=== PATIENT | male | born 1970 | race Caucasian/White ===

== ENCOUNTER 2018-08-29 01:40 | Emergency (ER) | payer BC ==
[~2018-08-29] VITALS: Ht 193 cm; Wt 136.0 kg
[~2018-08-29 01:40] MED LIST: ALLOPURINOL100 MG OR; ALLOPURINOL300 MG PO; CEPHALEXIN500 M1 PO; CLARITIN10 MG OR; COLCHICINE PO; COLCHICINE0.6 MG PO; FLEXERIL OR; HYDROCO/APAP1 T10 PO; HYDROCO/APAP1 TA9 PO; INDOCIN25 MG OR; INDOCIN25 MG PO; INDOCIN50 MG/CAP PO; KEFLEX500 M1 PO; LEVOTHYROXIN175 MCG PO; LISINOPRIL5 MG PO; LORTAB 5 OR; LORTAB 5-325 MG1 TAB PO; LORTAB 5/3255 MG PO; LORTAB 7.5 OR; LORTAB 7.5 PO; MEDDOSEPAK PO; MOTRIN800 MG OR; NAPROSYN500 MG OR; PERCOCET 5/325M1 TAB PO; PROBENECID/COLC1 TAB PO; SIMVASTATIN10 MG PO; STERAPRED DS10 MG PO; SYNTHROID175 MCG PO; ULORIC40 MG PO; ULTRAM50 M1 PO; ULTRAM50 MG OR
[2018-08-29 02:17] LABS: HEMATOCRIT 39.1 % (39.0-50.0); HEMOGLOBIN 12.9 g/dl (14.0-18.0); IMMATURE GRANULOCYTES 0.7 % (0.0-5.0); MEAN CELL VOLUME 99.7 fL CALC (80.0-100.0); MEAN CORPUSCULAR HGB 32.9 pG CALC (26.0-32.0); NEUT# 8.11 thou/uL (1.82-7.42); RED BLOOD COUNT 3.92 mill/uL (4.70-6.10); RED CELL DISTRI WIDTH 14.1 % (11.5-15.5)
[2018-08-29 02:18] LABS: URINE BILIRUBIN - DIPSTICK NEGATIVE (NEGATIVE); URINE BLOOD DIPSTICK TRACE-LYSED (NEGATIVE); URINE COLOR YELLOW; URINE GLUCOSE - DIPSTICK NEGATIVE (NEGATIVE); URINE KETONE NEGATIVE (NEGATIVE); URINE LEUK ESTERASE NEGATIVE (NEGATIVE); URINE NITRITE - DIPSTICK NEGATIVE (Negative); URINE PH 6.5 (4.5-8.0); URINE PROTEIN - DIPSTICK 100 mg/dL (NEG-TRACE); URINE SPECIFIC GRAVITY 1.025; URINE UROBILINOGEN - DIPSTICK 0.2 E.U./dL (0.2)
[2018-08-29 02:32] LABS: URINE RBC 0-2 RBC/hpf (0-5); URINE WBC 0-2 WBC/hpf (0-5)
[2018-08-29 02:32] LABS: ALBUMIN 4.1 g/dL (3.2-5.0); BILIRUBIN, TOTAL 0.4 mg/dL (0.0-1.4); CREATININE 2.3 mg/dL (0.7-1.3); POTASSIUM 4.8 mmol/l (3.5-5.1); TOTAL PROTEIN 8.5 g/dL (6.3-8.2)
[2018-08-29] MEDS ORDERED: FLEXERIL PO (03:48)
[2018-08-29 03:50] VITALS: BP 141/90
== END 2018-08-29 03:57 | disposition home or self-care (01) | DRG 552 ==
LOC: ED 01:40
PROVIDERS: Emergency Medicine
DX: M54.89 Other dorsalgia (principal); I10 Essential (primary) hypertension

== ENCOUNTER → 2018-10-09 | Outpatient (REF) ==
[~2018-10-09] MED LIST changes: +FLEXERIL PO
== END | disposition home or self-care (01) | DRG 684 ==
LOC: LAB 07:26
DX: N18.4 Chronic kidney disease, stage 4 (severe) (principal)

== ENCOUNTER 2018-12-16 06:37 | Emergency (ER) | payer BC ==
[~2018-12-16] VITALS: Ht 193 cm; Wt 100.0 kg
[2018-12-16] MEDS ORDERED: PREDNISONE5 MG PO (06:47)
[2018-12-16] MEDS ORDERED: ALLOPURINOL100 MG PO (06:47)
[2018-12-16] MEDS ORDERED: SIMVASTATIN5 MG PO (06:59)
[2018-12-16] MEDS ORDERED: ASPIRIN EC LOW81 MG PO (07:00)
[2018-12-16 07:15] LABS: HEMOGLOBIN 14.5 g/dl (14.0-18.0); IMMATURE GRANULOCYTES 0.6 % (0.0-5.0); MEAN CORPUSCULAR HGB 29.8 pG CALC (26.0-32.0); MEAN CORPUSCULAR HGB CONC 32.2 g/L CALC (32.0-36.0); NEUT# 16.23 thou/uL (1.82-7.42); RED BLOOD COUNT 4.87 mill/uL (4.70-6.10); RED CELL DISTRI WIDTH 14.7 % (11.5-15.5)
[2018-12-16 07:21] LABS: BILIRUBIN, TOTAL 0.5 mg/dL (0.0-1.4); CREATININE 1.8 mg/dL (0.7-1.3); POTASSIUM 4.9 mmol/l (3.5-5.1); TOTAL PROTEIN 7.9 g/dL (6.3-8.2)
[2018-12-16 07:32] LABS: HEMATOCRIT 45.1 % (39.0-50.0); MEAN CELL VOLUME 92.6 fL CALC (80.0-100.0)
[2018-12-16 08:22] LABS: C-REACTIVE PROTEIN 4.6 mg/dL (0-0.9)
[2018-12-16] MEDS ORDERED: COLCHICINE0.6 M2 PO (08:48)
[2018-12-16] MEDS ORDERED: PERCOCET 10/31 COMBO PO (08:49)
[2018-12-16 08:56] VITALS: BP 126/81
== END 2018-12-16 09:24 | disposition home or self-care (01) | DRG 554 ==
LOC: ED 06:37
PROVIDERS: Emergency Medicine
DX: M10.061 Idiopathic gout, right knee (principal); I10 Essential (primary) hypertension

== ENCOUNTER 2019-05-29 05:11 | Observation (INO) | payer BC ==
[~2019-05-29] VITALS: Ht 193 cm; Wt 129.4 kg
[~2019-05-29 05:11] MED LIST changes: +ALLOPURINOL100 MG PO; +ASPIRIN EC LOW81 MG PO; +COLCHICINE0.6 M2 PO; +PERCOCET 10/31 COMBO PO; +PREDNISONE5 MG PO; +SIMVASTATIN5 MG PO
[2019-05-29 06:31] LABS: HEMATOCRIT 42.6 % (39.0-50.0); HEMOGLOBIN 13.6 g/dl (14.0-18.0); IMMATURE GRANULOCYTES 0.7 % (0.0-5.0); MEAN CELL VOLUME 96.4 fL CALC (80.0-100.0); MEAN CORPUSCULAR HGB 30.8 pG CALC (26.0-32.0); MEAN CORPUSCULAR HGB CONC 31.9 g/L CALC (32.0-36.0); RED BLOOD COUNT 4.42 mill/uL (4.70-6.10); RED CELL DISTRI WIDTH 15.2 % (11.5-15.5)
[2019-05-29 06:33] LABS: URINE BILIRUBIN - DIPSTICK SMALL (NEGATIVE); URINE BLOOD DIPSTICK TRACE-LYSED (NEGATIVE); URINE COLOR YELLOW; URINE GLUCOSE - DIPSTICK NEGATIVE (NEGATIVE); URINE KETONE NEGATIVE (NEGATIVE); URINE LEUK ESTERASE NEGATIVE (NEGATIVE); URINE NITRITE - DIPSTICK NEGATIVE (Negative); URINE PH 5.5 (4.5-8.0); URINE PROTEIN - DIPSTICK >=300 mg/dL (NEG-TRACE); URINE SPECIFIC GRAVITY >=1.030; URINE UROBILINOGEN - DIPSTICK 0.2 E.U./dL (0.2)
[2019-05-29 06:36] LABS: URINE EPITHELIAL CELLS FEW EPI/hpf (0-FEW); URINE MUCUS MODERATE hpf (NONE-FEW); URINE RBC 0-2 RBC/hpf (0-5)
[2019-05-29 06:51] LABS: ALBUMIN 4.7 g/dL (3.2-5.0); BILIRUBIN, TOTAL 0.6 mg/dL (0.0-1.4); CREATININE 2.7 mg/dL (0.7-1.3); MAGNESIUM 1.9 mg/dL (1.6-2.3); POTASSIUM 4.2 mmol/l (3.5-5.1); TOTAL PROTEIN 8.7 g/dL (6.3-8.2)
[2019-05-29] MEDS ORDERED: HYDROCO/APAP1 T11 PO (11:29)
[2019-05-29 14:23] VITALS: BP 117/78
[2019-05-29 19:56] VITALS: BP 114/74
[2019-05-29 23:30] VITALS: BP 124/68
[2019-05-30 04:10] VITALS: BP 128/65
[2019-05-30 05:15] LABS: HEMATOCRIT 40.7 % (39.0-50.0); HEMOGLOBIN 12.6 g/dl (14.0-18.0); IMMATURE GRANULOCYTES 0.6 % (0.0-5.0); MEAN CELL VOLUME 98.1 fL CALC (80.0-100.0); MEAN CORPUSCULAR HGB 30.4 pG CALC (26.0-32.0); NEUT# 9.67 thou/uL (1.82-7.42); RED BLOOD COUNT 4.15 mill/uL (4.70-6.10); RED CELL DISTRI WIDTH 15.3 % (11.5-15.5)
[2019-05-30 05:30] LABS: CREATININE 2.1 mg/dL (0.7-1.3); POTASSIUM 4.8 mmol/l (3.5-5.1)
[2019-05-30 05:32] LABS: CHOLESTEROL HDL RATIO 4.8 (<4.4 (CALC))
[2019-05-30 08:15] VITALS: BP 133/88
[2019-05-30 11:54] VITALS: BP 118/59
[2019-05-30 16:00] VITALS: BP 151/82
[2019-05-30 18:55] VITALS: BP 140/56
[2019-05-31] VITALS (8 sets, daily range): BP systolic 127–164; BP diastolic 72–92
[2019-05-31 05:38] LABS: CREATININE 2.1 mg/dL (0.7-1.3); POTASSIUM 4.6 mmol/l (3.5-5.1)
[2019-05-31 05:42] LABS: ALBUMIN 3.7 g/dL (3.2-5.0)
[2019-05-31 08:38] LABS: HEMATOCRIT 39.5 % (39.0-50.0); HEMOGLOBIN 12.3 g/dl (14.0-18.0); IMMATURE GRANULOCYTES 0.6 % (0.0-5.0); MEAN CELL VOLUME 99.7 fL CALC (80.0-100.0); MEAN CORPUSCULAR HGB 31.1 pG CALC (26.0-32.0); MEAN CORPUSCULAR HGB CONC 31.1 g/L CALC (32.0-36.0); NEUT# 14.25 thou/uL (1.82-7.42); RED BLOOD COUNT 3.96 mill/uL (4.70-6.10)
[2019-06-01 04:25] VITALS: BP 119/68
[2019-06-01 05:43] LABS: HEMATOCRIT 34.2 % (39.0-50.0); HEMOGLOBIN 10.8 g/dl (14.0-18.0); IMMATURE GRANULOCYTES 1.1 % (0.0-5.0); MEAN CELL VOLUME 97.2 fL CALC (80.0-100.0); MEAN CORPUSCULAR HGB 30.7 pG CALC (26.0-32.0); MEAN CORPUSCULAR HGB CONC 31.6 g/L CALC (32.0-36.0); NEUT# 18.51 thou/uL (1.82-7.42); RED BLOOD COUNT 3.52 mill/uL (4.70-6.10); RED CELL DISTRI WIDTH 14.6 % (11.5-15.5)
[2019-06-01 06:01] LABS: ALBUMIN 3.2 g/dL (3.2-5.0); CREATININE 2.1 mg/dL (0.7-1.3); POTASSIUM 4.9 mmol/l (3.5-5.1)
[2019-06-01 06:17] LABS: CREATININE 2.1 mg/dL (0.7-1.3)
[2019-06-01 07:15] VITALS: BP 121/59
[2019-06-01 10:58] VITALS: BP 150/88
[2019-06-01] MEDS ORDERED: ZYLOPRIM100 MG PO (11:55)
[2019-06-01] MEDS ORDERED: FERROUS SULFAT325 MG PO (11:55)
[2019-06-01] MEDS ORDERED: TAMSULOSIN HCL0.4 MG PO (11:55)
[2019-06-01] MEDS ORDERED: PREDNISONE5 MG PO (11:55)
[2019-06-01] MEDS ORDERED: HYDROCO/APAP1 T11 PO (11:55)
[2019-06-01] MEDS ORDERED: DOXYCYCL HYC100 MG PO (11:55)
[2019-06-01] MEDS ORDERED: TESTOST CYP200 MG/ML IM (12:06)
[2019-06-01] MEDS ORDERED: MITIGARE0.6 MG PO (12:06)
== END 2019-06-01 12:26 | disposition home or self-care (01) | DRG 683 ==
LOC: ED 05:11 → ED-I 12:57 → ED 13:05 → MS2 13:06
PROVIDERS: Family Medicine; Internal Medicine Nephrology; Nurse Practitioner Family; ADMIT Internal Medicine; ATTEND Internal Medicine
DX: N17.9 Acute kidney failure, unspecified (principal); E87.2 Acidosis; L03.115 Cellulitis of right lower limb; M10.09 Idiopathic gout, multiple sites; E86.0 Dehydration; K52.9 Noninfective gastroenteritis and colitis, unspecified; I12.9 Hypertensive chronic kidney disease with stage 1 through stage 4 chronic kidney disease, or unspecified chronic kidney disease; N18.3 Chronic kidney disease, stage 3 (moderate); D63.1 Anemia in chronic kidney disease; F32.9 Major depressive disorder, single episode, unspecified; T39.395A Adverse effect of other nonsteroidal anti-inflammatory drugs [NSAID], initial encounter; T50.4X6A Underdosing of drugs affecting uric acid metabolism, initial encounter; R80.9 Proteinuria, unspecified; G47.33 Obstructive sleep apnea (adult) (pediatric); E78.5 Hyperlipidemia, unspecified; E03.9 Hypothyroidism, unspecified; Z79.52 Long term (current) use of systemic steroids; Z91.128 Patient's intentional underdosing of medication regimen for other reason
CPT/HCPCS: G0378

== ENCOUNTER 2019-06-28 18:11 | Emergency (ER) | payer BC ==
[~2019-06-28] VITALS: Ht 193 cm; Wt 130.0 kg
[~2019-06-28 18:11] MED LIST changes: +DOXYCYCL HYC100 MG PO; +FERROUS SULFAT325 MG PO; +HYDROCO/APAP1 T11 PO; +MITIGARE0.6 MG PO; +TAMSULOSIN HCL0.4 MG PO; +TESTOST CYP200 MG/ML IM; +ZYLOPRIM100 MG PO
[2019-06-28] MEDS ORDERED: PERCOCET 5/325M1 TAB PO (19:13)
[2019-06-28 20:24] VITALS: BP 138/77
== END 2019-06-28 20:24 | disposition home or self-care (01) | DRG 556 ==
LOC: ED 18:11
DX: M25.511 Pain in right shoulder (principal)

== ENCOUNTER 2019-09-13 | Emergency (ER) | payer OTHER, BC ==
[2019-09-13 09:27] LABS: HEMATOCRIT 39.4 % (39.0-50.0); HEMOGLOBIN 12.2 g/dl (14.0-18.0); IMMATURE GRANULOCYTES 0.5 % (0.0-5.0); MEAN CORPUSCULAR HGB 27.7 pG CALC (26.0-32.0); NEUT# 8.75 thou/uL (1.82-7.42); RED BLOOD COUNT 4.4 mill/uL (4.70-6.10); RED CELL DISTRI WIDTH 16.4 % (11.5-15.5)
[2019-09-13 09:31] LABS: MEAN CELL VOLUME 89.5 fL CALC (80.0-100.0)
[2019-09-13 09:39] LABS: ALKALINE PHOSPHATASE 92 u/l (38-126); ANION GAP 15 (6-22 (CALC)); BUN 28 mg/dL (9-20); BUN/CREATININE RATIO 11 (12-20 (CALC)); CARBON DIOXIDE 22 mmol/l (22-30); CHLORIDE 108 mmol/l (95-108); CREATININE 2.5 mg/dL (0.7-1.3); GFR 28 ML/MIN (>=60 (CALC)); GFR FOR AFR.AMER. 34 ML/MIN (>=60 (CALC)); LIPASE 349 u/l (23-300); POTASSIUM 4.3 mmol/l (3.5-5.1); SGOT/AST 21 u/l (17-59); SODIUM 140 mmol/l (137-146); TOTAL PROTEIN 8.4 g/dL (6.3-8.2)
[2019-09-13 09:44] LABS: BILIRUBIN, TOTAL 0.3 mg/dL (0.0-1.4)
[2019-09-13] MEDS ORDERED: FLEXERIL5 M1 PO (10:57)
== END 2019-09-13 11:09 | disposition home or self-care (01) | DRG 552 ==
PROVIDERS: Family Medicine
DX: M54.2 Cervicalgia (principal); M54.5 Low back pain; M54.6 Pain in thoracic spine; M25.562 Pain in left knee; I10 Essential (primary) hypertension; E03.9 Hypothyroidism, unspecified; F17.220 Nicotine dependence, chewing tobacco, uncomplicated; V53.5XXA Driver of pick-up truck or van injured in collision with car, pick-up truck or van in traffic accident, initial encounter

== ENCOUNTER 2019-11-11 | Emergency (ER) | payer BC ==
[~2019-11-11] MED LIST changes: +FLEXERIL5 M1 PO
[2019-11-11] MEDS ORDERED: PREDNISONE50 MG PO (03:58)
[2019-11-11] MEDS ORDERED: HYDROXYZ HCL25 MG PO (03:58)
== END 2019-11-11 04:40 | disposition home or self-care (01) | DRG 607 ==
DX: L23.81 Allergic contact dermatitis due to animal (cat) (dog) dander (principal); I10 Essential (primary) hypertension; E03.9 Hypothyroidism, unspecified; F17.200 Nicotine dependence, unspecified, uncomplicated

== ENCOUNTER 2020-07-01 12:42 | Inpatient (IN) | payer OTHER ==
[~2020-07-01] VITALS: Ht 193 cm; Wt 131.1 kg
[~2020-07-01 12:42] MED LIST changes: +HYDROXYZ HCL25 MG PO; +PREDNISONE50 MG PO
--- NOTE | 2020-07-01 13:27 | NUR ---
TO RM 6 FOR TRIAGE, IN WHEELCHAIR WITH RELUCTANCE, DENIES CHEST PAIN, REPORTS FLU SX
[2020-07-01] MEDS ORDERED: TAMSULOSIN0.4 MG PO (14:27)
[2020-07-01 14:35] LABS: HEMATOCRIT 43.3 % (39.0-50.0); HEMOGLOBIN 13.5 g/dl (14.0-18.0); IMMATURE GRANULOCYTES 0.7 % (0.0-5.0); MEAN CELL VOLUME 90.4 fL CALC (80.0-100.0); MEAN CORPUSCULAR HGB 28.2 pG CALC (26.0-32.0); MEAN CORPUSCULAR HGB CONC 31.2 g/dL CAL (32.0-36.0); NEUT# 5.63 thou/uL (1.82-7.42); RED BLOOD COUNT 4.79 mill/uL (4.70-6.10); RED CELL DISTRI WIDTH 15.3 % (11.5-15.5)
[2020-07-01 15:04] LABS: PROTHROMBIN TIME 10.2 SECONDS (9.0-12.5)
[2020-07-01 15:05] LABS: ALBUMIN 3.5 g/dL (3.2-5.0); ALKALINE PHOSPHATASE 96 u/l (38-126); BILIRUBIN, TOTAL 0.4 mg/dL (0.0-1.4); BUN 34 mg/dL (9-20); BUN/CREATININE RATIO 13 (12-20 (CALC)); C-REACTIVE PROTEIN 5.4 mg/dL (0-0.9); CHLORIDE 105 mmol/l (95-108); CREATININE 2.6 mg/dL (0.7-1.3); GFR 26 ML/MIN (>=60 (CALC)); GFR FOR AFR.AMER. 32 ML/MIN (>=60 (CALC)); LIPASE 492 u/l (23-300); POTASSIUM 4.5 mmol/l (3.5-5.1); SODIUM 139 mmol/l (137-146); TOTAL PROTEIN 7.3 g/dL (6.3-8.2)
[2020-07-01 15:13] LABS: ANION GAP 10 (6-22 (CALC)); CARBON DIOXIDE 29 mmol/l (22-30); SGOT/AST 67 u/l (17-59)
[2020-07-01] MEDS ORDERED: ALLOPURINOL100 MG PO (16:47)
[2020-07-01] MEDS ORDERED: COLCHICINE0.6 M2 PO (16:48)
[2020-07-01] MEDS ORDERED: HYDROCODONE BIT1 TA9 PO (16:48)
[2020-07-01] MEDS ORDERED: TESTOST CYP200 MG/ML IM (16:49)
[2020-07-01] MEDS ORDERED: PREDNISONE5 MG PO (16:49)
[2020-07-01] MEDS ORDERED: LEVOTHYROXIN200 MCG PO (16:50)
--- NOTE | 2020-07-01 18:28 | NUR ---
REPORT REC FROM WISAM CEDENO
--- NOTE | 2020-07-01 18:47 | NUR ---
REPORT CALLED PT TRANSPORTED AND STABLE IN ROOM, OXYGEN APPLIED Transfer Information Transferred To: [facility] Report Given to: GOYO CEDENO Transported by: [facility] Air Other Transported with: X Nurse Transporter X Patent IV X O2 Utility Maintenance Worker
[2020-07-01 20:14] VITALS: BP 150/91
--- NOTE | 2020-07-01 20:14 | NUR ---
PT ARRIVED TO MED SURG UNIT VIA STRETCHER ACCOMPANIED BY ED NURSE. PT APPEARS TO BE IN STABLE CONDITION AT THIS TIME. PT ORIENTED TO ROOM, CALL SYSTEM, LIGHTS, BED AND TV. ORIENTED TO NEG PRESSURE ROOM ALSO.
--- NOTE | 2020-07-01 20:25 | NUR ---
ASSESSMENT COMPLETED. PT DENIES N/V, REPORTS LOW APPETITE, DIAHRREA YESTERDAY. DENIES DIZZINESS, SOB, CP AT THIS TIME. PT IS ON 6LNC OXYGEN WITH SAT LEVELS STABLE @93% WILL CONTINUE TO MONITOR.
--- NOTE | 2020-07-01 22:55 | NUR ---
PT MEDICATED ORDERS PROVIDE. IVF ADMINISTERED AT THIS TIME ALSO TO 20 IN RFA/SITE APPEARS HEALTHY. PT ASKING FOR LOSENGES OR COUGH SUPPRESENT, WILL NOTIFY PHYSICIAN TREASURY MANAGER FOR REQUEST. PT COUGHING DRY HACKING COUGH WHILE I'M IN THE ROOM. PT REPORTS SORE ABD AND CHEST MUSCLES FROM COUGHING. DENIES ANY OTHER COMFORT MEASURES AT THIS TIME.
--- NOTE | 2020-07-02 | NUR ---
PT MEDICATED W/LOSENGE FOR COUGH/SORE THROAT
[2020-07-02 00:30] VITALS: BP 147/87
--- NOTE | 2020-07-02 02:18 | NUR ---
Pt ambulated to restroom and back to sitting on the side of the bed. Pt was having a coughing spell as I entered the room and had just placed oxygen back on. 02sat 85%on RA, 90% on 6L. Pt asked for assistance with cpap placement at this time, respiratory called for assistance, in with pt at this time. Respiratory reportedly keeping pt on cpap with 6L oxygen at this time.
[2020-07-02 04:00] VITALS: BP 167/93
--- NOTE | 2020-07-02 05:35 | NUR ---
PT MEDICATED ORDERS PROVIDE. HE IS SITTING ON THE SIDE OF THE BED, C/O COUGH. PT PROVIDED LOSENGE FOR COUGH. PT DENIES ANY OTHER NEEDS AT THIS TIME AND HAS BEEN INSTRUCTED TO CALL FOR ANY OTHER NEEDS. CALL LIGHT W/IN REACH.
[2020-07-02 07:58] VITALS: BP 131/92
--- NOTE | 2020-07-02 07:58 | NUR ---
PT SITTING IN BED. A&O X3. NO DISTRESS NOTED. O2 VIA NC IN PLACE @6L. HOME CPAP MACHINE AT BEDSIDE. PT STATES HE WAS TESTED FOR COVID LAST TUESDAY BUT DID NOT OBTAIN HIS RESULTS YET. REPORTS NURSE FIRST ASSIST COUGH FOR A WEEK. SOB WITH EXCERTION. NO OTHER NEEDS AT THIS TIME. CALL LIGHT IN REACH. CONTINUE TO MONITOR.
[2020-07-02 08:06] LABS: HEMATOCRIT 43.1 % (39.0-50.0); HEMOGLOBIN 13.3 g/dl (14.0-18.0); IMMATURE GRANULOCYTES 0.7 % (0.0-5.0); MEAN CELL VOLUME 90.7 fL CALC (80.0-100.0); MEAN CORPUSCULAR HGB CONC 30.9 g/dL CAL (32.0-36.0); NEUT# 6.48 thou/uL (1.82-7.42); RED BLOOD COUNT 4.75 mill/uL (4.70-6.10)
[2020-07-02 08:36] LABS: ALBUMIN 3.5 g/dL (3.2-5.0); BILIRUBIN, TOTAL 0.4 mg/dL (0.0-1.4); C-REACTIVE PROTEIN 4.5 mg/dL (0-0.9); CREATININE 2.3 mg/dL (0.7-1.3); POTASSIUM 5.1 mmol/l (3.5-5.1); TOTAL PROTEIN 7.5 g/dL (6.3-8.2)
--- NOTE | 2020-07-02 08:48 | NUR ---
DR NEWBERRY AND Sera DOMINIQUE APRN AT BEDSIDE DISCUSSING POC
--- NOTE | 2020-07-02 11:05 | NUR ---
PT SITTING IN BED. NO NEEDS AT THIS TIME. CALL LIGHT IN REACH. CONTINUE TO MONITOR.
[2020-07-02 11:38] VITALS: BP 156/91
[2020-07-02 15:00] VITALS: BP 153/90
--- NOTE | 2020-07-02 16:00 | NUR ---
PT SITTING ON THE SIDE OF THE BED. NO DISTRESS NOTED. CALL LIGHT IN RECAH. CONTINUE TO MONITOR.
--- NOTE | 2020-07-02 16:38 | NUR ---
PT TO BE CHANGED TO HIGH FLOW O2, MALCOM CARCAMO AND HI RT NOTIFIED.
--- NOTE | 2020-07-02 16:50 | NUR ---
PT PLACED ON 8L HIGH FLOW O2 BY HI CISNEROS. PT SUSTAINING 92%
--- NOTE | 2020-07-02 16:52 | NUR ---
PLACED ON 8L HFNC. O2 SAT NOW 92%
[2020-07-02 19:27] VITALS: BP 155/89
--- NOTE | 2020-07-02 20:03 | NUR ---
PHYSICAL ASSESMENT COMPLETE. PT CURRENTLY DENIES PAIN BUT STATE HE IS VERY ANXIOUS. WILL PROVIDE PRN AXIETY MEDICATION. ROBITUSSIN PROVIDED FOR ACUTE COUGH. SCHEDULED MEDICATIONS AND PRN MEDICATION ADMINISTERED, SEE E-MAR. PT DENIES ANY NEEDS AT THIS TIME. PLAN OF CARE REVIEWED, PT DENIES QUESTIONS, VERBALIZES UNDERSTANDING. ITEMS WITHIN REACH, BED LOCKED IN LOW POSITION W/ BEDRAILS UP X2. CALL SANDERSON WITHIN REACH, AGREES TO CALL PRN.
--- NOTE | 2020-07-03 00:03 | NUR ---
PT LAYING IN BED WITH EYES CLOSED, APPEARS TO BE SLEEPING, APPEARS COMFORTABLE AND IN NO DISTRESS. RESPIRATIONS REGULAR AND UNLABORED. ITEMS REMAIN WITHIN REACH, CALL SANDERSON REMAINS WITHIN REACH. BED REMAINS LOCKED AND IN LOW POSITION WITH BEDRAILS UP X2. WILL CONTINUE TO MONITOR.
[2020-07-03 00:05] VITALS: BP 137/86
--- NOTE | 2020-07-03 03:58 | NUR ---
PT RESTING IN BED, NO SIGNS OF DISTRESS NOTED, RESP EVEN AND UNLABORED ON 8 LITERS OF HIGH FLOW O2. PT VOICES NO NEEDS OR COMPLAINTS AT THIS TIME. CALL LIGHT IN REACH, CONTINUE TO MONITOR.
[2020-07-03 04:00] VITALS: BP 153/86
[2020-07-03 06:09] LABS: HEMATOCRIT 45.9 % (39.0-50.0); HEMOGLOBIN 13.8 g/dl (14.0-18.0); MEAN CELL VOLUME 91.8 fL CALC (80.0-100.0); MEAN CORPUSCULAR HGB 27.6 pG CALC (26.0-32.0); MEAN CORPUSCULAR HGB CONC 30.1 g/dL CAL (32.0-36.0); RED CELL DISTRI WIDTH 15.1 % (11.5-15.5)
[2020-07-03 06:11] LABS: ALBUMIN 3.3 g/dL (3.2-5.0); BILIRUBIN, TOTAL 0.3 mg/dL (0.0-1.4); CREATININE 2.2 mg/dL (0.7-1.3)
[2020-07-03 06:15] LABS: POTASSIUM 5.7 mmol/l (3.5-5.1)
[2020-07-03 07:15] VITALS: BP 145/91
--- NOTE | 2020-07-03 07:48 | NUR ---
RECIEVED REPORT FROM WILIAN NUNEZ. PT RESTING IN SEMI FOWLERS POSITION UPON ENTERING ROOM. INRODUCED SELF TO PT AND DISCUSSED POC. PT IS A/O X3. ASSESSMENT AND VITALS COMPLETED. RESPIRATIONS ARE EVEN AND UNLABORED ON 8L HIGH FLOW. PT OXYGEN SAT 93-94% . PT COMPLAINS OF SOB ON EXCERTION. HEART RHYTHM NORMAL WITH TELE IN PLACE. BOWEL SOUNDS ARE ACTIVE IN ALL QUADRANTS, LAST REPORTED BM 07/02/20. RADIAL AND PEDAL PULSES ARE STRONG WITH NORMAL CAPILLARY REFILL. #20G IN RAC RUNNING WITH IVF PER ODER, SITE APPEARS HEALTHY AND PATENT. PT DENIES OF ANY PAIN AT THIS TIME.PT DENIES COUGH. ALL SAFETY PRECAUTIONS ARE IN PLACE WITH CALL LIGHT IN REACH.ISOLATION PRECAUTIONS IN PLACE. WILL CONTINUE TO MONITOR
--- NOTE | 2020-07-03 09:00 | NUR ---
DR NEWBERRY AND MALCOM, ANRP AT BEDSIDE DISCUSSING POC WITH PT
[2020-07-03 11:42] VITALS: BP 145/82
--- NOTE | 2020-07-03 12:44 | NUR ---
PT SITTING ON SIDE OF BED EATING LUNCH. RESPIRATIONS ARE EVEN AND UNLABORED ON 8L HIGH FLOW. PT DENIES ANY PAIN OR NEEDS AT THIS TIME. ALL SAFTEY PRECAUTIONS ARE IN PLACE WIHT CALL LIGHT IN REACH. EILL CONTINUE TO MONITOR
[2020-07-03 15:25] VITALS: BP 154/88
--- NOTE | 2020-07-03 15:38 | NUR ---
PT SITTING ON SIDE ON BED. RESPIRATIONS EVEN AND UNLABORED ON 8L HIGH FLOW NC. IV ANTIBIOTICS INFUSING WITH EASE. SITE APPEARS HEALTHY AND PATENT. PT DENIES ANY NEEDS AT THIS TIME. ALL SAFETY PRECAUTIONS ARE IN PLACE WITH CALL LIGHT IN REACH. ISOLATION PRECAUTIONS IN PLACE. WILL CONTINUE TO MONITOR
[2020-07-03 19:45] VITALS: BP 155/51
--- NOTE | 2020-07-03 20:03 | NUR ---
PHYSICAL ASSESMENT COMPLETE. PT CURRENTLY DENIES PAIN OR DISCOMFORT. SCHEDULED MEDICATIONS AND PRN MEDICATION ADMINISTERED, SEE E-MAR. PT DENIES ANY NEEDS AT THIS TIME. PLAN OF CARE REVIEWED, PT DENIES QUESTIONS, VERBALIZES UNDERSTANDING. ITEMS WITHIN REACH, BED LOCKED IN LOW POSITION W/ BEDRAILS UP X2. CALL SANDERSON WITHIN REACH, AGREES TO CALL PRN.
--- NOTE | 2020-07-04 00:03 | NUR ---
PT LAYING IN BED WITH EYES CLOSED, APPEARS TO BE SLEEPING, APPEARS COMFORTABLE AND IN NO DISTRESS. RESPIRATIONS REGULAR AND UNLABORED ON 8 LITERS OF HIGH FLOW 02. ITEMS REMAIN WITHIN REACH, CALL SANDERSON REMAINS WITHIN REACH. BED REMAINS LOCKED AND IN LOW POSITION WITH BEDRAILS UP X2. WILL CONTINUE TO MONITOR.
[2020-07-04 00:25] VITALS: BP 154/88
--- NOTE | 2020-07-04 04:09 | NUR ---
PT RESTING IN BED, NO SIGNS OF DISTRESS NOTED, RESP EVEN AND UNLABORED. PT VOICES NO NEEDS OR COMPLAINTS AT THIS TIME. CALL LIGHT IN REACH,CONTINUE TO MONITOR.
[2020-07-04 05:00] VITALS: BP 130/73
[2020-07-04 05:43] LABS: HEMOGLOBIN 13.6 g/dl (14.0-18.0); IMMATURE GRANULOCYTES 1.4 % (0.0-5.0); MEAN CELL VOLUME 91.1 fL CALC (80.0-100.0); MEAN CORPUSCULAR HGB 28.2 pG CALC (26.0-32.0); MEAN CORPUSCULAR HGB CONC 30.9 g/dL CAL (32.0-36.0); NEUT# 7.58 thou/uL (1.82-7.42); RED BLOOD COUNT 4.83 mill/uL (4.70-6.10)
[2020-07-04 05:58] LABS: ALBUMIN 3.2 g/dL (3.2-5.0); BILIRUBIN, TOTAL 0.3 mg/dL (0.0-1.4); C-REACTIVE PROTEIN 1.4 mg/dL (0-0.9); CREATININE 2.2 mg/dL (0.7-1.3); TOTAL PROTEIN 6.9 g/dL (6.3-8.2)
[2020-07-04 06:01] LABS: POTASSIUM 5.3 mmol/l (3.5-5.1)
[2020-07-04 08:02] VITALS: BP 124/79
--- NOTE | 2020-07-04 08:09 | NUR ---
REPORT RECEIVED FROM WILIAN GARCIA. PT SITTING UP IN BED; ALERT AND ORIENTED. ON AIRBORNE/ISOLATION PRECAUTIONS FOR POSITIVE COVID. DENIES PAIN. RESPIRATIONS EVEN AND UNLABORED ON 8L HUMIDIFIED OXYGEN VIA HIGH FLOW NASAL CANNULA; PT DOES C/O MILD SOB. SPO2 AT THIS TIME IS 85%; WITH ENCOURAGED DEEP BREATHING SPO2 INCREASED TO 87%; OXYGEN TITRATED UP TO 9L. AT 9L SPO2 INCREASES TO 92%; WILL CONTINUE TO MONITOR. PT ENCOURAGED TO TCDB. PT REPORTS SMALL LOOSE GREEN/BROWN BOWEL MOVEMENT THIS MORNING. PLAN OF CARE REVIEWED. PT ENCOURAGED TO VERBALIZE CONCERNS. SAFETY MEASURES IN PLACE. CALL LIGHT WITHIN REACH.
[2020-07-04 10:30] VITALS: BP 136/84
--- NOTE | 2020-07-04 11:23 | NUR ---
INCENTIVE SPIROMETER PROIVDED AND EDUCATED ON; RETURN DEMONSTRATION FROM PT. INSPIRATORY VOLUME OF 1500.
--- NOTE | 2020-07-04 14:43 | NUR ---
REMDESIVIR INFUSING AT THIS TIME; IV SITE APPEARS HEALTHY AND FLUSHES.
[2020-07-04 15:35] VITALS: BP 131/80
--- NOTE | 2020-07-04 16:12 | NUR ---
NO REQUEST OR CONCERNS AT THIS TIME; SPO2 REMAINS ABOVE 90% ON 9L OF OXYGEN. PT INDEPENDENT IN ROOM WITH OXYGEN ON. ZITHROMAX INFUSING AT THIS TIME. CALL LIGHT WITHIN REACH.
[2020-07-04 19:30] VITALS: BP 136/83
--- NOTE | 2020-07-04 22:58 | NUR ---
PHYSICAL ASSESMENT COMPLETE. PT CURRENTLY DENIES PAIN OR DISCOMFORT. SCHEDULED MEDICATIONS AND PRN MEDICATION ADMINISTERED, SEE E-MAR. PT ON 9 LITERS OF HIGH FLOW O2 STATING AT 92%. PT DENIES ANY NEEDS AT THIS TIME. PLAN OF CARE REVIEWED, PT DENIES QUESTIONS, VERBALIZES UNDERSTANDING. ITEMS WITHIN REACH, BED LOCKED IN LOW POSITION W/ BEDRAILS UP X2. CALL SANDERSON WITHIN REACH, AGREES TO CALL PRN.
[2020-07-05] VITALS (16 sets, daily range): BP systolic 108–162; BP diastolic 61–99
--- NOTE | 2020-07-05 04:10 | NUR ---
PT LAYING IN BED WITH EYES CLOSED, APPEARS TO BE SLEEPING, APPEARS COMFORTABL AND IN NO DISTRESS. RESPIRATIONS REGULAR AND UNLABORED. ITEMS REMAIN WITHIN REACH, CALL SANDERSON REMAINS WITHIN REACH. BED REMAINS LOCKED AND IN LOW POSITION WITH BEDRAILS UP X2. WILL CONTINUE TO MONITOR.
--- NOTE | 2020-07-05 08:00 | NUR ---
PATIENT USING THE RESTROOM. REPORT LOOSE BOWELS.
--- NOTE | 2020-07-05 11:46 | NUR ---
PT STARTED ON VAPOTHERM/HHFNC. 30LPM AT 100%.
--- NOTE | 2020-07-05 11:48 | NUR ---
PATIENT C/O SOB. PULSE OX TAKEN AND REPORTED TO RADHA. ALTHEA CHANGED POSITION AND PLACED RECLINER. RESPIRATORY TREATMENT GIVEN. RECOMENDATION TO TRANSFER TO ICU.
--- NOTE | 2020-07-05 16:42 | NUR ---
PT STANDING UP TO USE BATHROOM, STATES FEELS A LITTLE STEADIER ON FEET AT THIS TIME BUT STILL HAS NO ENERGY.
--- NOTE | 2020-07-05 18:22 | NUR ---
PT RESTING QUIETLY ON BED WATCHING TV, JUST FINISHED DINNER TRAY APPROX 75%, NO COMPLAINTS AT THIS TIME
--- NOTE | 2020-07-05 20:00 | NUR ---
rt here. pt requests vapotherm off-removed per rt & 100% nrb began.
--- NOTE | 2020-07-05 20:20 | NUR ---
rt here. pt requests nrb off & home cpap on. rt changed as requested.
--- NOTE | 2020-07-05 20:30 | NUR ---
awake. home cpap cont. denies acute distress. monitor worker shows sinus rhythm. #20 rac saline lock. po fluids taken poor. voids per urinal. fall & air/contact precautions cont.
--- NOTE | 2020-07-05 20:30 | NUR ---
spoke to pt @ length about prone position. pt said "i can't".
--- NOTE | 2020-07-05 21:45 | NUR ---
atarax 25mg po given per request for anxiety.
--- NOTE | 2020-07-05 22:15 | NUR ---
robitussin 10cc given per request for cough.
[2020-07-06] VITALS (18 sets, daily range): BP systolic 106–163; BP diastolic 70–104
--- NOTE | 2020-07-06 00:01 | NUR ---
eyes closed. home cpap cont. site monitor shows sinus rhythm.
--- NOTE | 2020-07-06 02:00 | NUR ---
coughing. desats quickly then o2 sat returns to 90's. home cpap conts.
--- NOTE | 2020-07-06 05:00 | NUR ---
lab here. blood drawn.
[2020-07-06 05:52] LABS: HEMATOCRIT 44.2 % (39.0-50.0); HEMOGLOBIN 13.8 g/dl (14.0-18.0); IMMATURE GRANULOCYTES 3.5 % (0.0-5.0); MEAN CELL VOLUME 89.3 fL CALC (80.0-100.0); MEAN CORPUSCULAR HGB 27.9 pG CALC (26.0-32.0); MEAN CORPUSCULAR HGB CONC 31.2 g/dL CAL (32.0-36.0); NEUT# 8.51 thou/uL (1.82-7.42); RED BLOOD COUNT 4.95 mill/uL (4.70-6.10); RED CELL DISTRI WIDTH 15.1 % (11.5-15.5)
--- NOTE | 2020-07-06 06:00 | NUR ---
no acute change in condition. cpap cont.
[2020-07-06 06:19] LABS: ALBUMIN 3.1 g/dL (3.2-5.0); BILIRUBIN, TOTAL 0.3 mg/dL (0.0-1.4); C-REACTIVE PROTEIN 3.9 mg/dL (0-0.9); POTASSIUM 4.9 mmol/l (3.5-5.1); TOTAL PROTEIN 6.6 g/dL (6.3-8.2)
--- NOTE | 2020-07-06 09:15 | NUR ---
PT VERY RESTLESS AND ANXIOUS, STATES HEAD IS KILLING HIM AND HE DOESNT FEEL LIKE HE CAN CATCH HIS BREATH. PT STATES HE CANT WEAR THE NON REBREATHER IT FEELS LIKE IT IS EXPLODING HIS NOSE, BUT DOESNT FEEL LIKE HE IS GETTING THE AIR HE NEEDS WITH O2. NOTIFIED.
--- NOTE | 2020-07-06 11:17 | NUR ---
PT SITTING UP IN RECLINER SLEEPING AT THIS TIME. SATS 93% ON NRB.
--- NOTE | 2020-07-06 14:15 | NUR ---
PT REMAINS SITTING UP IN CHAIR , STATES FEELS BETTER WITH PAIN MEDICATIONS AND ANXIETY MEDS.
--- NOTE | 2020-07-06 15:59 | NUR ---
PT REMAINS IN CHAIR, STATES FEELS MUCH BETTER THAN YESTERDAY AFTER THE ANXIETY AND PAIN MEDICATIONS
--- NOTE | 2020-07-06 18:12 | NUR ---
PT REMAINS SITTING IN CHAIR, EATING AT THIS TIME, TOOK NRB OFF TO EAT AND SATS DROPPED DOWN TO LOW 80'S. HE STATES FEELS MUCH BETTER WITH THE LORTAB AND XANAX, STATES THINKS THAT HAS REALLY HELPED.
--- NOTE | 2020-07-06 20:00 | NUR ---
sitting in bedside chair. nad. o2 cont per 100% nrb. cafeteria monitor shows sinus rhythm hr 70. #20 rac saline lock. po fluids taken well. voids per urinal. fall & air/contact precautions cont. requested recliner. pt said he sleeps in one @ home. recliner provided.
--- NOTE | 2020-07-06 22:00 | NUR ---
robitussin 10cc & lortab 10 given per request for cough & pain. remains in recliner. o2 cont.
[2020-07-07] VITALS (21 sets, daily range): BP systolic 114–158; BP diastolic 59–92
--- NOTE | 2020-07-07 00:01 | NUR ---
asleep in recliner. nad. o2 cont per nrb. alarm security or surveillance monitor shows sinus jeremie hr 58.
--- NOTE | 2020-07-07 02:00 | NUR ---
sleeping in recliner. nad. o2 cont.
--- NOTE | 2020-07-07 05:00 | NUR ---
lab here. blood drawn.
[2020-07-07 06:02] LABS: ALBUMIN 3.2 g/dL (3.2-5.0); BILIRUBIN, TOTAL 0.3 mg/dL (0.0-1.4); POTASSIUM 5.1 mmol/l (3.5-5.1); TOTAL PROTEIN 6.9 g/dL (6.3-8.2)
--- NOTE | 2020-07-07 06:30 | NUR ---
xanax 0.5mg po given for anxiety.
--- NOTE | 2020-07-07 07:40 | NUR ---
RECEIVED REPORT FROM SONIA ZAYAS.
--- NOTE | 2020-07-07 08:15 | NUR ---
PT SITTING IN CHAIR AT BEDSIDE EATING BREAKFAST. MEDS ADMINISTERED AT THIS TIME. STABLE ON MONITOR. NO COMPLAINTS AT THIS TIME. CALL LIGHT WITHIN REACH.
--- NOTE | 2020-07-07 10:15 | NUR ---
NO CHANGE FROM PREVIOUS NOTE. PT DENIES ANY PAIN. NO DISTRESS NOTED. WILL CONTINUE TO MONITOR.
--- NOTE | 2020-07-07 12:28 | NUR ---
PT SITTING IN BEDSIDE CHAIR. STABLE ON MONITOR. NO COMPLAINTS. UP ADLIB. LUNCH COMPLETED.
--- NOTE | 2020-07-07 14:08 | NUR ---
PT STILL SITTING IN BEDSIDE CHAIR. AMBULATES TO BATHROOM INDEPENDTLY. VITALS STABLE. CALL LIGHT WITHIN REACH.
--- NOTE | 2020-07-07 16:20 | NUR ---
IV MEDS CONTINUE TO INFUSE. NO DISTRESS NOTED. CALL LIGHT WITHIN REACH. PT DENIES PAIN OR ANXIETY AT THIS TIME.
--- NOTE | 2020-07-07 18:14 | NUR ---
PT SITTING IN BEDSIDE CHAIR. VITALS STABLE ON MONITOR. PT WITH NO CONCERNS. CALL LIGHT WITHIN REACH. BED IN LOW POSITION. UP AD MARIJA. NON REBREATHER ON PT.
--- NOTE | 2020-07-07 20:15 | NUR ---
PT. SITTING UP IN RECLINER WITH NO DISTRESS NOTED. NRB IN PLACE @15 LITERS/MIN; SPO2 92%. EXERTIONAL SOB NOTED. ASSESSMENT COMPLETED. PO FLUIDS OFFERED. PT. REPORTS FEELING BETTER TODAY. ENCOURAGED TO CALL FOR ANY NEEDS. CALL LIGHT IS IN REACH, WILL CONTINUE TO MONITOR.
--- NOTE | 2020-07-07 20:57 | NUR ---
PT NOTED SITTING UP IN CHAIR, NO APPARENT DISTRESS NOTED. MEDICATED ORDERED. PAIN AND ANXIETY MEDICATION ADMINISTERED UPON REQUEST. EXTRA BLANKET PROVIDED. NO OTHER CURRENT WANTS OR NEEDS. CALL LIGHT WITHIN REACH. WILL CONTINUE TO MONITOR.
[2020-07-08] VITALS (24 sets, daily range): BP systolic 109–154; BP diastolic 63–90
--- NOTE | 2020-07-08 00:07 | NUR ---
PT. SITTING UP IN RECLINER WITH NO DISTRESS NOTED; NRB IN PLACE @100% AND SPO2 91-92%. DENIES NEEDS. CALL LIGHT IS IN REACH.
--- NOTE | 2020-07-08 04:00 | NUR ---
SITTING UP IN THE RECLINER WITH NRB IN PLACE. DENIES NEEDS. CALL LIGHT IS IN REACH.
[2020-07-08 05:17] LABS: HEMATOCRIT 44.3 % (39.0-50.0); HEMOGLOBIN 13.9 g/dl (14.0-18.0); IMMATURE GRANULOCYTES 3.6 % (0.0-5.0); MEAN CELL VOLUME 89.3 fL CALC (80.0-100.0); MEAN CORPUSCULAR HGB CONC 31.4 g/dL CAL (32.0-36.0); NEUT# 14.15 thou/uL (1.82-7.42); RED BLOOD COUNT 4.96 mill/uL (4.70-6.10); RED CELL DISTRI WIDTH 15.2 % (11.5-15.5)
--- NOTE | 2020-07-08 05:21 | NUR ---
SCHED MEDS GIVEN AND SPO2 90-92% ON NRB WHEN REMOVED PT. SPO2 DOES DROP WHEN REMOVED DOWN TO 81% AND ONCE REAPPLIED BAACK UP TO 91-92%. DENIES NEEDS/PAIN. CALL LIGHT IS IN REACH.
[2020-07-08 05:42] LABS: ALBUMIN 3.1 g/dL (3.2-5.0); BILIRUBIN, TOTAL 0.3 mg/dL (0.0-1.4); C-REACTIVE PROTEIN 3.8 mg/dL (0-0.9); CREATININE 2.1 mg/dL (0.7-1.3); TOTAL PROTEIN 6.8 g/dL (6.3-8.2)
[2020-07-08 05:51] LABS: POTASSIUM 5.5 mmol/l (3.5-5.1)
--- NOTE | 2020-07-08 07:22 | NUR ---
REPORT RECEIVED FROM WILIAN OGDEN. PT SITTING UP IN BEDSIDE RECLINER; ALERT AND ORIENTED. DENIES PAIN. RESPIRATIONS SLIGHTLY LABORED AFTER EXERTION OF USING URINAL; CURRENTLY ON NONREBREATHER. SPO2 84% AND THEN UP TO 92% AFTER A FEW MINUTES OF REST. PT REPORTS SOB WITH EXERTION, BUT STATES HE RECOVERS WELL WITH REST. LUNG SOUNDS ARE DIMINISHED, TRACE ANKLE EDEMA, ABDOMEN DISTENDED AND FIRM. POC REVIEWED. PT ENCOURAGED TO VERBALIZE CONCERNS. STATES UNDERSTANDING. SAFETY MEASURES IN PLACE. CALL LIGHT WITHIN REACH.
--- NOTE | 2020-07-08 09:12 | NUR ---
RT AT BEDSIDE; CHAGED FROM NONREBREATHER TO 15L HIGH FLOW NC WITH HUMIDIFIED OXYGEN; WILL CONTINUE TO CLOSELY MONITOR SPO2.
--- NOTE | 2020-07-08 10:37 | NUR ---
PT VERY ANXIOUS AND FRUSTRATED; ENCOURAGED TO VERBALIZE CONCERNS. REQUESTING XANAX; GIVEN AT THIS TIME. PT CONSENTS TO VAPOTHERM FOR OXYGENATION. CONTINUES TO DESAT ON HIGH FLOW NC.
--- NOTE | 2020-07-08 11:45 | NUR ---
PT SITTING UP IN CHAIR WITH EYES CLOSED AND HEAD LEANED BACK; APPEARS MORE RELAXED. VAPOTHERM NC ON AT 30L/MIN; 100% O2; 33 DEGREES CELCIUS; SPO2 93-94%. PT OPENS EYES SPONTANEOUSLY. VERBALIZES THAT HE FEELS DEPRESSED; ENCOURAGED TO TALK ABOUT HIS FEELINGS; DECLINES OFFER TO TURN ON TV OR OPEN WINDOW SHADES. NO OTHER REQUESTS OR CONCERNS AT THIS TIME.
--- NOTE | 2020-07-08 14:00 | NUR ---
SPO2 89-94% ON VAPOTHERM. PT STILL SLIGHTLY ANXIOUS AND ASKS FOR XANAX TO GIVEN OFTEN POSSIBLE. VOIDING CLEAR YELLOW URINE IN URINAL.
--- NOTE | 2020-07-08 17:57 | NUR ---
PT REQUESTED PARTIAL BATH; ASSISTED WITH SET UP AND PT BATHED HIMSELF INDEPENDENTLY. SOB WITH EXERTION; SPO2 DECREASED INTO THE 80S, CURRENTLY AT 88% WITH RESPIRATIONS AT 33 PER MINUTE. CONTINUES ON VAPOTHERM ON SAME SETTINGS.
--- NOTE | 2020-07-08 20:50 | NUR ---
PT. SITTING UP IN RECLINER WITH VAPOTHERM @30LITERS AND 100% WITH SPO2 92%. UPDATED ON POC; VERBALIZES UNDERSTANDING. DENIES NEEDS/ PAIN AT THIS TIME. ASSESSMENT COMPLETED AND ENCOURAGED USE OF INCENTIVE SPIROMETER AND EDUCATION GIVEN. URINAL EMPTIED. CALL LIGHT IS IN REACH. ENCOURAGED TO CALL FOR ANY NEEDS.
--- NOTE | 2020-07-08 22:20 | NUR ---
SPOKE WITH DR. LOPEZ AND NO NEED FOR ATTEMPTING TO TRANSFER PTLorena CRANE.
--- NOTE | 2020-07-08 23:30 | NUR ---
PT. SITTING UP IN RECLINER AND DENIES NEEDS/PAIN. SPO2 90% AND REMAINS ON VAPO THERM ON 30LITERS AT 100%. URINAL AT BEDSIDE.
[2020-07-09] VITALS (25 sets, daily range): BP systolic 106–144; BP diastolic 65–83
--- NOTE | 2020-07-09 02:00 | NUR ---
SLEEPING IN RECLINER; SPO2 91-93%. WILL CONTINUE TO MONITOR.
--- NOTE | 2020-07-09 05:03 | NUR ---
PT. DENIES NEEDS/PAIN; ENCOURAGED TO CALL FOR ANY NEEDS. EXERTIONAL SOB NOTED. VAPO THERM REMAINS AT SAME RATE; DENIES NEEDS FOR PAIN/ANTI-ANXIETY; URINAL EMPTIED. CALL LIGT IS IN REACH.
--- NOTE | 2020-07-09 07:35 | NUR ---
REPORT RECEIVED FROM WILIAN OGDEN. PT SITTNG UP IN RECLINER; ALERT AND ORIENTED. DENIES PAIN. RESPIRATIONS EVEN AND UNLABORED ON VAPOTHERM WITH SETTINGS AT 30L/MIN, 100%, 33 DEGREES CELCIUS; SPO2 UP TO 97% AND DECREASES LOW 90% WITH MINIMAL EXERTION. PT DENIES SOB AND STATES, "I FEEL BETTER, I'M READY TO GO HOME." LUNGS ARE CLEAR, HEART RATE REGULAR; SINUS RHYTHM HR 75. NO EDEMA. IV SITE APPEARS HEALTHY AND FLUSHES TO LAC. SAFETY MEASURES IN PLACE. CALL LIGHT WITHIN REACH.
--- NOTE | 2020-07-09 09:05 | NUR ---
DR. LOPEZ AT BEDSIDE FOR EVAL.
[2020-07-09 10:02] LABS: HEMATOCRIT 49.1 % (39.0-50.0); HEMOGLOBIN 15.2 g/dl (14.0-18.0); IMMATURE GRANULOCYTES 3.4 % (0.0-5.0); MEAN CELL VOLUME 89.8 fL CALC (80.0-100.0); MEAN CORPUSCULAR HGB 27.8 pG CALC (26.0-32.0); NEUT# 11.65 thou/uL (1.82-7.42); RED BLOOD COUNT 5.47 mill/uL (4.70-6.10); RED CELL DISTRI WIDTH 15.3 % (11.5-15.5)
--- NOTE | 2020-07-09 10:19 | NUR ---
SPO2 DECREASES TO 84% WHILE LEANING FORWARD AND TALKING ON HIS CELL PHONE; REMINDING TO USE GOOD BREATHING TECHNIUQES DURING ACTIVITY.
[2020-07-09 10:43] LABS: ALBUMIN 3.5 g/dL (3.2-5.0); BILIRUBIN, TOTAL 0.4 mg/dL (0.0-1.4); CREATININE 1.9 mg/dL (0.7-1.3); POTASSIUM 4.6 mmol/l (3.5-5.1); TOTAL PROTEIN 7.8 g/dL (6.3-8.2)
--- NOTE | 2020-07-09 11:00 | NUR ---
SPO2 93% ON VAPOTHERM; PT MORE ACCEPTING OF [facility]. VOIDING CLEAR YELLOW URINE IN URINAL. ONLY REQUEST AT THIS TIME IS FOR PAPER AND A PEN.
--- NOTE | 2020-07-09 14:30 | NUR ---
REMDESIVIER INFUSING WITHOUT DIFFICULTY; IV SITE APPEARS HEALTHY AND FLUSHES. PT REQUESTING XANAX FOR HIS ANXIETY AND LORTAB FOR LOWER BACK PAIN; PROVIDED. ENCOURAGED RELAXATION TECHNIQUES AND REPOSITIONING IN CHAIR.
--- NOTE | 2020-07-09 19:15 | NUR ---
PT. SITTING UP IN RECLINER WITH EXERTIONAL SOB NOTED. VAPOTHERM IN PLACE AND RT TITRATED TO 80% FROM 100% WITH THE SAME 30LITERS/MIN SETTING. ASSESSMENT COMPLETED. SNACK AND ICE PROVIDED PER REQUEST. DENIES FURTHER NEEDS. IV SITE PATENT AND SL. ENCOURAGED TO CALL FOR ANY NEEDS. CALL LIGHT IS IN REACH. WILL CONTINUE TO MONITOR.
--- NOTE | 2020-07-09 20:42 | NUR ---
C/O BACK PAIN AND ANXIETY; MEDICATED WITH ORDERED PRN XANAX AND LORTAB; WILL REASSESS.
--- NOTE | 2020-07-09 23:45 | NUR ---
PT. SITTING UP IN RECLINER; SPO2 91%. DENIES NEEDS/PAIN. URINAL EMPTIED. CALL LIGHT IS IN REACH.
[2020-07-10] VITALS (7 sets, daily range): BP systolic 115–142; BP diastolic 69–84
--- NOTE | 2020-07-10 02:00 | NUR ---
RESTING IN RECLINER WITH EYES CLOSED .VAPOTHERM REMAINS AT SAME SETTINGS WITH SPO2 94%. WILL CONTINUE TO MONITOR.
--- NOTE | 2020-07-10 04:00 | NUR ---
SITTING UP IN RECLINER WITH EYES CLOSED. SPO2 94%. NURSING AIDE IN PLACE READING SB. WILL CONTINUE TO MONITOR.
--- NOTE | 2020-07-10 05:30 | NUR ---
PT. SITTING UP IN RECLINER. DENIES NEEDS/PAIN. OUTSOLE PARAFFINER IN PLACE AND IS READING SB 50'S; SPO2 RANGING 93-94% WITH VAPOTHERM SETTINGS REMAINING THE SAME. ENCOURAGED TO CALL FOR ANY NEEDS. CALL LIGHT IS IN REACH.
[2020-07-10 05:40] LABS: HEMATOCRIT 45.5 % (39.0-50.0); HEMOGLOBIN 14.2 g/dl (14.0-18.0); IMMATURE GRANULOCYTES 4.6 % (0.0-5.0); MEAN CELL VOLUME 89.6 fL CALC (80.0-100.0); MEAN CORPUSCULAR HGB CONC 31.2 g/dL CAL (32.0-36.0); NEUT# 9.04 thou/uL (1.82-7.42); RED BLOOD COUNT 5.08 mill/uL (4.70-6.10); RED CELL DISTRI WIDTH 15.4 % (11.5-15.5)
[2020-07-10 06:15] LABS: CREATININE 1.7 mg/dL (0.7-1.3)
[2020-07-10 06:29] LABS: POTASSIUM 5.5 mmol/l (3.5-5.1)
--- NOTE | 2020-07-10 06:53 | NUR ---
REPORT RECEIVED FROM SALES PROJECT ADMINISTRATOR. PT SLEEPING AT THIS TIME, REMAINS ON VAPOTHERM WITH SATS AT 95%.
--- NOTE | 2020-07-10 10:21 | NUR ---
PT SITTING UP IN CHAIR, WITH HIGH FLOW GOING, REQUESTED A XANAX PILL, APPEARS TO BE VERY DEPRESSED, AT THIS TIME, STATES I DONT LIKE WHAT DR. LOPEZ HAD TO SAY TO ME ON HOW LONG I WILL HAVE TO BE HERE.
--- NOTE | 2020-07-10 15:45 | NUR ---
PER PT REQUEST CALLED RESP TECH TO LOWER VAPOTHERM DOWN. LOWERED TO 65% PT SATS REMAIN 95% WHILE SITTING IN CHAIR. PT DENIES ANY SOB
--- NOTE | 2020-07-10 20:30 | NUR ---
SITTING UP IN CHAIR ON ROUNDS. ALERT AND ORIENTED. RESP NON-LABORED AT REST. USING VAPOTHERM 55% FIO2, 20 L, T 33. O2 SAT 92% DYSPNEIC WITH EXERTION. BREATH SOUNDS CLEAR IN UPPER LOBES, DIMINISHED IN BASES. SALINE LOCK INTA CT IN LAC. SUPERVISOR CONCR[employer]E PIPE PLANT SHOWS SR. DISCUSSED PLAN OF CARE. DENIES NEEDS AT THIS TIME. CALL SANDERSON IN REACH.
--- NOTE | 2020-07-10 21:50 | NUR ---
MEDICATED WITH XANAX FOR SLEEP, LORTAB FOR C/O BACK PAIN AND ROBITUSSIN FOR COUGH REQUESTED BY PATIENT. PATIENT REMAINS UP IN BEDSIDE CHAIR, STATES HE WILL PROBABLY SLEEP IN CHAIR. VSS. SB-R ON MONITOR.
[2020-07-11] VITALS (10 sets, daily range): BP systolic 114–135; BP diastolic 74–90
--- NOTE | 2020-07-11 00:15 | NUR ---
CONTINUES SITTING UP IN CHAIR, AWAKE, LOOKING AT IPAD. NO COMPLAINTS VOICED.
--- NOTE | 2020-07-11 02:09 | NUR ---
REMAINS UP IN RECLINER. VSS. SB ON MONITOR.
--- NOTE | 2020-07-11 04:00 | NUR ---
RESTING WITH EYES CLOSED. SB ON MONITOR. REMAINS ON VAPOTHERM.
--- NOTE | 2020-07-11 06:00 | NUR ---
REMAINS UP IN RECLINER WITH LEGS ELEVATED. VSS. SB ON MONITOR.
--- NOTE | 2020-07-11 09:00 | NUR ---
PT IS AWAKE, ALERT, ORIENTED X 3. LUNGS CLEAR BUT DIMINISHED, VAPOTHERM IN PLACE. RT HAS BEEN ABLE TO WEAN HIM DOWN TO 15/55%/33. PT OOB IN CHAIR, COMFORTABLE THERE. NO DISTRESS, NO COMPLAINTS.
--- NOTE | 2020-07-11 15:51 | NUR ---
PT ARRIVED VIA WC WITH STAFF. NO IV SITE
--- NOTE | 2020-07-11 16:11 | NUR ---
PT HAS BEEN TRANSFERRED TO MED/SURG FLOOR AT THIS TIME. PT WAS ON 15 LPM HIGH FLOW NASAL CANNULA, SATTING MID 90s. NO COMPLAINT OF SHORTNESS OF BREATH OR OTHERWISE. REPORT WAS PROVIDED TO HEIDI SOCTT.
--- NOTE | 2020-07-11 17:50 | NUR ---
SPOKE WITH PT RE: IV SITE IS SITTING IN THE CHAIR NO DISTRESS NOTED. TALKING ON THE PHONE/
--- NOTE | 2020-07-11 20:13 | NUR ---
ED NURSE JUST IN TO OBTAIN NEW IV SITE AT THIS TIME. STEPHANY IS NOW RUNNING, WILL FOLLOW-UP WITH ANTIBIOTIC THERAPIES PREVIOUSLY ORDERED. IV ANTIBIOTICS WERE DELAYED EARLIER IN THE DAY DUE TO LOSS OF IV SITE. PT ON 15L HIGH FLOW NC OXYGEN SAT LEVELS 95% AT THIS TIME. PT SITTING UP IN RECLINER, DENIES ANY OTHER NEEDS AT THIS TIME.
--- NOTE | 2020-07-11 23:05 | NUR ---
PT V/S ASSESSED, OXYGEN SAT LEVELS 95% ON 15LNC HIGH FLOW HUMIDIFIED. PT SITTING IN RECLINER, REPORTS HE IS PLANNING TO SLEEP IN RECLINER. DENIES ANY NEEDS AT THIS TIME. NO SOB OBSERVED, RESP EVEN AND UNLABORED. CALL LIGHT W/IN REACH AND PT ENCOURAGED TO CALL NEEDS ARISE. VERALIZED UNDERSTANDING. IV ANTIBIOTICS COMPLETED AT THIS TIME AND IV TO RW FLUSHED PATENT/APPEARS HEALTHY.
[2020-07-12 04:24] VITALS: BP 127/86
--- NOTE | 2020-07-12 04:35 | NUR ---
PT AWAKE IN RECLINER, [employer] WORKER'S OBTAINING V/S. PT APPEARS STABLE, REPORTS FEELING COLD, ADDITIONAL BLANKET PROVIDED, AIR IS TURNED TO WARM FOR PT COMFORT. PT MEDICATED W/AM MEDICATIONS ORDERS PROVIDE. NO S/O DISTRESS NOTED.
[2020-07-12 07:04] VITALS: BP 120/74
[2020-07-12 08:13] VITALS: BP 118/79
--- NOTE | 2020-07-12 08:13 | NUR ---
RECIEVED REPROT FROM WILIAN CRAWFORD. PT SITTTING IN CHAIR UPON ENTERING ROOM. INTRODUCED SELF TO PT AND DISCUSSED POC. PT IS A/O X3. ASSESSMENT AND VITALS COMPLETED. BP 118/79, HR 64, O2 92% ON 13L HIGH FLOW. RESPIRATIONS ARE EVEN AND UNLABORED. PT REPORTS SOB ON EXCERTION. VAPO MIST AT BEDSIDE, NO IN USE AT THSI TIME. HEART RHYTHM IS NORMAL WITH TELE IN PLACE, SB 54 PER ER MONITORING.BOWEL SOUNDS ARE ACTIVE, LAST REPORTED BM 07/08/2020. PT REFUSES ANYTHING TO ASSIST.RADIAL AND PEDAL PULSES ARE STRONG. #20G 8IN RH FLUSHED, SITE APPEARS HEALTHY AND PATENT. PT DENIES OF ANY PAIN. SKIN IS WARM AND DRY WITH NO BREAKDOWN NOTED. ALL SAFETY PRECAUTIONS ARE IN PLACE WITH CALL LIGHT IN REACH. AIR/ CONTACT PRECAUTIONS ARE IN PLACE.WILL CONTINUE TO MONITOR
[2020-07-12 11:00] VITALS: BP 108/67
--- NOTE | 2020-07-12 12:56 | NUR ---
PT SITTING UP IN CHAIR ON TABLET. RESPIRATIONS ARE EVEN AND UNLABORED ON 13L NC HIGH FLOW. PT DENIES ANY PAIN OR DISCOMFORTS AT THIS TIME. ALL SAFETY AND ISOLATION PRECAUTIONS ARE IN PLACE WITH CALL LIGHT IN REACH. WILL CONTINUE TO MONITOR
--- NOTE | 2020-07-12 15:38 | NUR ---
PT SITTING IN RECYLINER WATCHING TV. RESPIRATIONS ARE EVEN AND UNLABRED ON 13L NC. PT DENEIS OF ANY PAIN OR DISCOMFORTS AT THIS TIME. TELE MONITORING IN PLACE. NO REORT OF BM AT THIS TIME.PT REFUSES ANYTHING TO ASSIST. ALL SAFETY PRECAUTIONS ARE IN PLACE. AIR/CONTACT PRCAUTIONS IN PLACE. WILL CONTINUE TO MONITOR
[2020-07-12 15:54] VITALS: BP 117/74
[2020-07-12 20:00] VITALS: BP 117/76
--- NOTE | 2020-07-12 20:00 | NUR ---
RECIEVED REPROT FROM SONIA VELEZ. PT SITTTING IN RECLINER. INTRODUCED SELF TO PT AND DISCUSSED POC. PT IS A/O X3. ASSESSMENT & VS OBTAINED, PT IS ON HIGH FLOW O2 @ 12-14L/MIN- RT MANAGAING & TITRATING. RESPIRATION ARE EVEN & NON-LABORED. NO CURRENT C/O SOB EXPRESSED, BUT PT REPORTS SOB W/ EXCERTION. VAPO MIST & CPAP AT BEDSIDE- NOT CURRENTLY IN USE. NORMAL S1 & S2 HEART SOUNDS W/ REGULAR RATE AND RHYTHM- TELE IN PLACE- SHOWING SR. ACTIVE BS X 4 QUADS, LAST BM WAS ON 07/08- PT OFFERED SOFTNERS/LAXATIVE BUT HE REFUSED. BILAT RADIAL & PEDAL PULSES PRESENT, EQUAL & STRONG. #20G PIV LOCATED IN R- HAND- SL. SITE IS PATENT, CLEAN, DRY, AND INTACT. NO S/SX OF DISTRESS OR DISCOMFORT EXPRESSED OR OBSERVED AT THIS TIME. ALL ISOLATION & SAFETY PRECAUTIONS IN PLACE. BED IN LOWEST POSITION, WHEELS LOCKED, & UPPER SIDE RAILS UP X 2 AND CALL LIGHT WITHIN REACH. WILL CONTINUE TO MONITOR FOR COMFORT AND SAFETY.
[2020-07-13] VITALS: BP 132/86
--- NOTE | 2020-07-13 00:17 | NUR ---
PT SITTING IN RECYLINER RESTING. RESPIRATIONS ARE EVEN AND UNLABRED ON 14L NC. NO S/SX OF DISCOMFORT OR DISTRESS NOTED AT THIS TIME. ALL SAFETY & ISOLATION PRECAUTIONS IN PLACE. TELE MONITOR IN PLACE. WILL CONTINUE TO MONITOR FOR COMFORT AND SAFETY.
[2020-07-13 04:00] VITALS: BP 124/79
--- NOTE | 2020-07-13 08:20 | NUR ---
RECEIEVED REPORT FROM SONIA JONES. PT WALKING BACK FROM RESTROOM TO CHAIR WITH NO OXYGEN UPON ENTERING ROOM, SOB ON EXCERTION NOTED.REAPPLIED OXYGEN. INTRODUCED SELF TO PT AND DISCUSSED POC. PT IS A/O X3. ASSESSMENT AND VITALS COMPLETED. BP 145/87, HR 68, O2 93% ON 9L NC. RESPIRATIONS ARE EVEN AND UNLABORED. HEART RHYTHM NORMAL WITH TELE IN PLACE, SR 69 PER ER MONITORING. BOWEL SOUNDS ARE ACTIVE IN ALL QUADRANTS, LAST RPORTED BM 07/08/2020. PT REFUSES ANYTHING TO ASSIST. SERVICE CENTER COORDINATOR SUGGEST PRUNE JUICE, PT REFUSED WELL. RADIAL AND PEDAL PULSES ARE STRONG WITH NORMAL CAPILLARY REFILL. #20G IN RH FLUSHED, SITE APPEARS HEALTHY AND PATENT. SKIN APPEARS WARM AND DRY WITH NO BREAKDOWN NOTED. PT DENIES ANY PAIN. ALL SAFETY PRECAUTIONS ARE IN PLACE WIHT CALL LIGHT IN REACH.AIR/CONTACT PRECAUTIONS ENFORCED. WILL CONTINUE TO MONITOR
[2020-07-13 08:22] VITALS: BP 145/87
--- NOTE | 2020-07-13 09:39 | NUR ---
STAMPING DIE TRY OUT WORKER NOTFIED OF PT LEFT LEAD FAIL ON TELEMETRY. PT WALKING BACK FROM [facility]. NEW ELECTRODES PLACED. LEADS DISCONNECTED AND RECONNECTED. ER STATING TELE IS STILL NOT READING. NEW BATTERIES APPLIED. TELE BOX CLEANED WITH WIPES. ER STATING " ITS GOING IN AND OUT." AGREEED TO MONITOR AND FOLLOW UP .
--- NOTE | 2020-07-13 10:22 | NUR ---
SPO2 ON 9L HFNC 94%. DECREASED TO 8L.
--- NOTE | 2020-07-13 11:35 | NUR ---
DR LOPEZ AT BEDSIDE DISCUSSING POC WITH PT
[2020-07-13 11:49] VITALS: BP 111/70
--- NOTE | 2020-07-13 12:02 | NUR ---
PT SITTING IN RECYLINER.PT IS A/O X3. RESPIRATIONS ARE EVEN AND UNLABORE DON 8L NC. PT DENIES ANY PAINS. TELE MONITORING IN PLACE, SR 63 PER ER MONITORING. PT DENEIS ANY PAIN OR DISCOMFORTS AT THIS TIME. ALL SAFETY PRECAUTIONS ARE IN PLACE WIHT CALL LIGHT IN REACH. WILL CONTINUE TO MONITOR
--- NOTE | 2020-07-13 16:22 | NUR ---
PT SITTING IN RECYLINER ON TABLET. REPSIRATIONS ARE EVEN AND UNLABORED ON 8L NC. PT DENIES ANY PAIN OR DISCOMFORTS AT THIS TIME. TELE MONITORING IS PLACE. ALL SAFTEY AND ISOLATION PRECAUTIONS ARE IN PLACE WITH CALL LIGHT IN REACH. WILL CONTINUE TO MONITOR.
--- NOTE | 2020-07-13 19:10 | NUR ---
REPORT FROM DORIS SCOTT. ASSUME PT CARE AT THIS TIME.
[2020-07-13 20:00] VITALS: BP 139/81
--- NOTE | 2020-07-13 20:12 | NUR ---
PT SITTING UP IN CHAIR AT BEDSIDE. ALERT AND ORIENTED X3. PT DRESSED IN HOME CLOTHES. NO APPARENT DISTRESS NOTED. RESPIRATIONS EVEN AND UNLABORED. ON 8L/M O2 VIA HIGHFLOW NC. SOB WITH EXERTION. PT DENIES ANY PAIN OR DISCOMFORT AT THIS TIME. IV SITE APPEARS HEALTHY, FLUSHED WELL. STERILE PRODUCTS PROCESSOR IN PLACE. DISCUSSED POC. PT VERBALIZED UNDERSTANDING AND ANTICIPATES DISCHARGING HOME TOMORROW WITH OXYGEN. NO CURRENT WANTS OR NEEDS NOTED. CALL LIGHT WITHIN REACH. WILL CONTINUE TO MONITOR.
[2020-07-14] VITALS: BP 139/88
--- NOTE | 2020-07-14 00:24 | NUR ---
PT RESTING IN BED WITH EYES CLOSED. NO APPARENT DISTRESS NOTED. RESPIRATIONS EVEN AND UNLABORED. O2 @ 8L/M VIA HIGHFLOW NC. AUTO HIKER REMAINS IN PLACE. IV SITE APPEARS HEALTHY. VSS. CALL LIGHT WITHIN REACH. WILL CONTINUE TO MONITOR.
[2020-07-14 04:00] VITALS: BP 134/80
--- NOTE | 2020-07-14 04:29 | NUR ---
PT RESTING IN BED WITH EYES CLOSED. NO APPARENT DISTRESS NOTED. RESPIRATIONS EVEN AND UNLABORED. COMMERCIAL LEASING AGENT REMAINS IN PLACE. IV SITE APPEARS HEALTHY. VSS. CALL LIGHT WITHIN REACH. WILL CONTINUE TO MONITOR.
--- NOTE | 2020-07-14 07:05 | NUR ---
REPORT RECEIVED FROM SONIA LOPEZ.
[2020-07-14 08:07] VITALS: BP 132/83
--- NOTE | 2020-07-14 08:10 | NUR ---
PT RESTING IN RECLINER,A&O X3;VS OBTAINED AND ASSESSMENT COMPLETED, O2 89% ON RA;RESPIRATIONS EVEN AND UNLABORED ON RA AT THIS TIME,DIMINISHED LUNG SOUNDS NOTED;NON-PRODUCTIVE COUGH;O2 DECREASED TO 4L VIA NC, PT INSTRUCTED TO NOTIFIY WRITTER IF INCREASED SOB ARISES;ABDOMEN DISTENDED/SOFT ON PALPATION AND ACTIVE IN ALL 4 QUADRANTS;WEAK PEDAL PULSES;SKIN INTACT;TELE MONITORING IN PLACE;#20G TO RIGHT HAND FLUSHED AND PATENT,SITE APPEARS HEALTHY;PT REMAINS IN AIR/CONTACT PRECAUTIONS DUE TO COVID19 DX;PT DENIES ANY ADDITIONAL NEEDS AND IS ENCOURAGED TO CALL FOR ASSISTANCE IF NEEDED;FALL PRECAUTIONS IN PLACE WITH CALL LIGHT IN REACH;WILL CONTINUE TO MONITOR
--- NOTE | 2020-07-14 08:50 | NUR ---
AT BEDSIDE DISCUSSING POC WITH PT.
--- NOTE | 2020-07-14 10:38 | NUR ---
OXYGEN QUALIFICATION TEST OBTAINED AT THIS TIME PER ORDER.AT REST O2 SATS 88% AT THIS TIME, WITH AMBULATION O2 SATS DROPPED TO 86% ON RA, O2 REPLACED AND O2 SATS CHARLIE TO 92%;PT DENIES ANY ADDITIONAL NEEDS AND IS ENCOURAGED TO CALL FOR ASSISTANCE IF NEEDED;CALL LIGHT IN REACH;WILL CONTINUE TO MONITOR
[2020-07-14] MEDS ORDERED: DEXAMETHASON6 MG PO (11:22)
[2020-07-14] MEDS ORDERED: OXY1 (11:23)
--- NOTE | 2020-07-14 11:45 | NUR ---
PT RESTING IN RECLINER;RESPIRATIONS REMAIN EVEN AND UNLABORED ON O2 @ 3L VIA NC AT THIS TIME, OXYGEN WAS TITRATED BY IZA PAULSON AND PT TOLERATING WELL;PT DENIES ANY CURRENT PAIN OR DISCOMFORTS;TELE MONITORING IN PLACE;IV SITE PATENT;ASSESSMENT REMAINS UNCHANGED AT THIS TIME;ENCOURAGED TO CALL FOR ASSISTANCE IF NEEDED;FALL PRECAUTIONS IN PLACE WITH BED IN LOWEST POSITION AND CALL LIGHT IN REACH;WILL CONTINUE TO MONITOR
[2020-07-14 12:00] VITALS: BP 125/75
--- NOTE | 2020-07-14 15:00 | NUR ---
PT RESTING IN RECLINER;RESPIRATIONS EVEN AND UNLABORED ON O2 @ 3L VIA NC;PT DENIES ANY CURRENT PAIN OR DISCOMFORTS;TELE MONITORING IN PLACE;IV SITE PATENT;HOME OXYGEN PROVIDED BY [facility] AT THIS TIME AND PT EDUCATED ON USAGE, PT VERBALIZES UNDERSTANDING;PT DENIES ANY ADDITIONAL NEEDS AND IS ENCOURAGED TO CALL FOR ASSISTANCE IF NEEDED;CALL LIGHT IN REACH;WILL CONTINUE TO MONITOR
--- NOTE | 2020-07-14 15:19 | NUR ---
ALL DISCHARGE INSTRUCTIONS PROVIDED AT THIS TIME;PT INSTRUCTED TO F/U WITH PCP, USE SUPPLEMENTAL O2 NEEDED, CONTINUE COURSE OF DECADRON WHICH WAS SENT TO PHARMACY AND SENF ISOLATE FOR 1 MORE WEEK;PT VERBALIZES UNDERSTANDING AND DENIES ANY ADDITIONAL QUESTIONS OR NEEDS;IV SITE REMOVED WITH CATHETER INTACT AND TELE MONITORING D/C;WHEELCHAIR TO BE PROVIDED FOR D/C HOME;PT TO TRANSPORT SELF HOME;WILL CONTINUE TO MONITOR
--- NOTE | 2020-07-14 15:26 | NUR ---
Discharge instructions given. Patient verbalizes understanding of same. Discharged in stable condition via Wheelchair to Home with *Other. All belongings sent with pt. PT TRANSPORTED TO [facility] IN STABLE CONDITION VIA WHEELCHAIR ACCOMPANIED BY [facility];ALL BELONGINGS LEFT WITH PT INCLUDING PORTABLE HOME OXYGEN;PT TO TRANSPORT SELF HOME.
== END 2020-07-14 13:26 | disposition home or self-care (01) | DRG 177 ==
LOC: ED 12:42 → ED-I 13:30 → ED 13:30 → ED-I 15:27 → ED 15:40 → MS2 15:41 → ICU 07-05 13:40 → MS2 07-11 15:50
PROVIDERS: Internal Medicine; Nurse Practitioner Family; ADMIT Internal Medicine; ATTEND Internal Medicine
PROC: XW033E5 Introduction of Remdesivir Anti-infective into Peripheral Vein, Percutaneous Approach, New Technology Group 5 (ICD-10-PCS; principal; 2020-07-01)
PROC: 5A09357 Assistance with Respiratory Ventilation, Less than 24 Consecutive Hours, Continuous Positive Airway Pressure (ICD-10-PCS; 2020-07-05)
DX: U07.1 COVID-19 (principal); J12.89 Other viral pneumonia; J96.01 Acute respiratory failure with hypoxia; N17.9 Acute kidney failure, unspecified; R19.7 Diarrhea, unspecified; I12.9 Hypertensive chronic kidney disease with stage 1 through stage 4 chronic kidney disease, or unspecified chronic kidney disease; N18.32 Chronic kidney disease, stage 3b; E03.9 Hypothyroidism, unspecified; E78.5 Hyperlipidemia, unspecified; F17.220 Nicotine dependence, chewing tobacco, uncomplicated; G89.4 Chronic pain syndrome; M1A.9XX0 Chronic gout, unspecified, without tophus (tophi); F41.9 Anxiety disorder, unspecified; M19.90 Unspecified osteoarthritis, unspecified site

== ENCOUNTER 2021-02-02 08:34 | Emergency (ER) | payer BC ==
[~2021-02-02] VITALS: Ht 193 cm; Wt 140.4 kg
[~2021-02-02 08:34] MED LIST changes: +DEXAMETHASON6 MG PO; +HYDROCODONE BIT1 TA9 PO; +LEVOTHYROXIN200 MCG PO; +OXY1; +TAMSULOSIN0.4 MG PO
[2021-02-02 09:22] LABS: HEMATOCRIT 41.7 % (39.0-50.0); HEMOGLOBIN 13.6 g/dl (14.0-18.0); IMMATURE GRANULOCYTES 0.5 % (0.0-5.0); MEAN CORPUSCULAR HGB CONC 32.6 g/dL CAL (32.0-36.0); NEUT# 6.14 thou/uL (1.82-7.42); RED BLOOD COUNT 4.25 mill/uL (4.70-6.10); RED CELL DISTRI WIDTH 17.1 % (11.5-15.5)
[2021-02-02 09:23] LABS: MEAN CELL VOLUME 98.1 fL CALC (80.0-100.0)
[2021-02-02 09:32] LABS: ALBUMIN 3.9 g/dL (3.2-5.0); ALKALINE PHOSPHATASE 93 u/l (38-126); BILIRUBIN, TOTAL 0.4 mg/dL (0.0-1.4); BUN 24 mg/dL (9-20); CHLORIDE 104 mmol/l (95-108); POTASSIUM 4.6 mmol/l (3.5-5.1); SODIUM 136 mmol/l (137-146); TOTAL PROTEIN 7.9 g/dL (6.3-8.2)
[2021-02-02 09:34] LABS: ANION GAP 15 (6-22 (CALC)); BUN/CREATININE RATIO 8 (12-20 (CALC)); CARBON DIOXIDE 22 mmol/l (22-30); GFR 22 ML/MIN (>=60 (CALC)); GFR FOR AFR.AMER. 27 ML/MIN (>=60 (CALC)); SGOT/AST 52 u/l (17-59)
[2021-02-02] MEDS ORDERED: NORVASC5 M1 PO (10:08)
[2021-02-02] MEDS ORDERED: SIMVASTATIN5 MG PO (10:09)
[2021-02-02 12:05] VITALS: BP 140/78
[2021-02-02 12:12] LABS: URINE BILIRUBIN - DIPSTICK NEGATIVE (NEGATIVE); URINE BLOOD DIPSTICK SMALL (NEGATIVE); URINE COLOR YELLOW; URINE GLUCOSE - DIPSTICK NEGATIVE (NEGATIVE); URINE KETONE NEGATIVE (NEGATIVE); URINE LEUK ESTERASE NEGATIVE (NEGATIVE); URINE PROTEIN - DIPSTICK 100 mg/dL (NEG-TRACE); URINE UROBILINOGEN - DIPSTICK 0.2 E.U./dL (0.2)
[2021-02-02 12:17] LABS: URINE NITRITE - DIPSTICK NEGATIVE (Negative); URINE RBC 0-2 RBC/hpf (0-5)
[2021-02-02 12:18] LABS: URINE EPITHELIAL CELLS RARE EPI/hpf (0-FEW)
== END 2021-02-02 12:05 | disposition home or self-care (01) | DRG 313 ==
LOC: ED 08:34
PROVIDERS: Family Medicine
DX: R07.9 Chest pain, unspecified (principal); I12.9 Hypertensive chronic kidney disease with stage 1 through stage 4 chronic kidney disease, or unspecified chronic kidney disease; N18.30 Chronic kidney disease, stage 3 unspecified; M10.9 Gout, unspecified; E03.9 Hypothyroidism, unspecified; F17.200 Nicotine dependence, unspecified, uncomplicated; Z20.822 Contact with and (suspected) exposure to COVID-19

== ENCOUNTER 2021-08-26 04:55 | Emergency (ER) | payer BC ==
[~2021-08-26] VITALS: Ht 193 cm; Wt 136.0 kg
[~2021-08-26 04:55] MED LIST changes: +NORVASC5 M1 PO
[2021-08-26 06:10] LABS: HEMATOCRIT 40.4 % (39.0-50.0); HEMOGLOBIN 12.6 g/dl (14.0-18.0); IMMATURE GRANULOCYTES 0.5 % (0.0-5.0); MEAN CORPUSCULAR HGB 29.9 pG CALC (26.0-32.0); MEAN CORPUSCULAR HGB CONC 31.2 g/dL CAL (32.0-36.0); NEUT# 23.99 thou/uL (1.82-7.42); RED BLOOD COUNT 4.21 mill/uL (4.70-6.10); RED CELL DISTRI WIDTH 15.9 % (11.5-15.5)
[2021-08-26 06:24] LABS: ALBUMIN 3.5 g/dL (3.2-5.0); CREATININE 3.1 mg/dL (0.7-1.3); POTASSIUM 4.9 mmol/l (3.5-5.1); TOTAL PROTEIN 7.2 g/dL (6.3-8.2)
[2021-08-26 06:30] LABS: BILIRUBIN, TOTAL 0.7 mg/dL (0.0-1.4)
[2021-08-26 06:39] LABS: URINE BILIRUBIN - DIPSTICK NEGATIVE (NEGATIVE); URINE BLOOD DIPSTICK TRACE-INTACT (NEGATIVE); URINE COLOR YELLOW; URINE GLUCOSE - DIPSTICK NEGATIVE (NEGATIVE); URINE KETONE NEGATIVE (NEGATIVE); URINE LEUK ESTERASE NEGATIVE (NEGATIVE); URINE PROTEIN - DIPSTICK 100 mg/dL (NEG-TRACE); URINE UROBILINOGEN - DIPSTICK 0.2 E.U./dL (0.2)
[2021-08-26 06:40] LABS: URINE NITRITE - DIPSTICK NEGATIVE (Negative)
[2021-08-26 07:06] LABS: URINE BACTERIA MODERATE hpf; URINE EPITHELIAL CELLS FEW EPI/hpf (0-FEW)
[2021-08-26] MEDS ORDERED: PERCOCET 5/325M1 TAB PO (07:23)
[2021-08-26 07:35] VITALS: BP 146/69
== END 2021-08-26 08:19 | disposition home or self-care (01) | DRG 554 ==
LOC: ED 04:55
PROVIDERS: Emergency Medicine
DX: M1A.09X1 Idiopathic chronic gout, multiple sites, with tophus (tophi) (principal); I12.9 Hypertensive chronic kidney disease with stage 1 through stage 4 chronic kidney disease, or unspecified chronic kidney disease; N18.9 Chronic kidney disease, unspecified; E03.9 Hypothyroidism, unspecified; F17.200 Nicotine dependence, unspecified, uncomplicated